=== PATIENT | male | born 1975 | race Caucasian/White ===

== ENCOUNTER 2021-04-14 05:45 | Emergency (ER) | payer OTHER ==
--- NOTE | 2021-04-14 06:05 | NUR ---
Pt not in waiting room.
== END 2021-04-14 06:06 | disposition left against medical advice (07) ==
LOC: ER 05:47
DX: Z53.21 Procedure and treatment not carried out due to patient leaving prior to being seen by health care provider (principal)

== ENCOUNTER 2024-07-18 12:02 | Emergency (ER) | payer MEDICAID ==
[~2024-07-18] VITALS: Ht 177.8 cm; Wt 68.9 kg
[2024-07-18 12:12] VITALS: O2SAT 97
== END 2024-07-18 13:25 | disposition home or self-care (01) ==
LOC: ER 12:04
DX: S51.012D Laceration without foreign body of left elbow, subsequent encounter (principal); S51.011D Laceration without foreign body of right elbow, subsequent encounter; F41.9 Anxiety disorder, unspecified; Z60.2 Problems related to living alone; X58.XXXD Exposure to other specified factors, subsequent encounter
CPT/HCPCS: A4606; A4663